=== PATIENT | male | born 1955 | race Caucasian/White ===

== ENCOUNTER → 2016-03-20 | Outpatient (CLI) | payer BC, OTHER ==
--- NOTE | ~2016-03-20 | CNG ---
[facility] [place] [address] CYTO-NONGYN REPORT PROCEDURE Name: GREGORY CRAIG Room #: REG [facility]#: [id number] Admission: 03/20/16 Date of : 57 Discharge: Report #: [id number] Path Case #: [id number] CYTOPATHOLOGY REPORT COLLECTION DATE: 03/20/2016 RECEIVED DATE: 03/20/2016 SUBMITTING PHYS: Dr. Perry Amaya OTHER PHYS: Dr. Perry Amaya CLINICAL HISTORY: Lung mass. SPECIMEN(S) RECEIVED: A.Bronchial brushings, VERENA B.Bronchial brush rinse, VERENA C.Bronchoalveolar lavage, VERENA * * * * * * * * * * * * FINAL DIAGNOSIS: A. Bronchial brushings, VERENA: - No malignant cells identified. - Bronchial epithelial cells, acute and chronic inflammatory cells and red blood cells identified. B. Bronchial brush rinse, VERENA: - No malignant cells identified. - Bronchial epithelial cells and occasional acute and chronic inflammatory cells identified. C. Bronchoalveolar lavage, VERENA: - No malignant cells identified. - Predominantly blood and peripheral blood elements identified. COMMENT: Please see also the bronchial biopsy ([id number]). Clinical, radiographic, and bronchoscopic correlation is recommended. (NEYDA:; d/t: 03/21/16) PATHOLOGIST: Monique Gamino M.D. REPORT ELECTRONICALLY SIGNED BY: Monique Gamino M.D. DATE/TIME: 03/21/2016 21:54 * * * * * * * * * * * * GROSS PATHOLOGY: A. Bronchial brushings, VERENA: The specimen is labeled "Gregory Craig" and consists of five fixed slides. B. Bronchial brush rinse, VERENA: The specimen is labeled "Gregory Craig" and consists of a brush tip in fixative. One ThinPrep slide was prepared. C. Bronchoalveolar lavage, VERENA: The specimen is submitted unfixed, labeled "Gregory Craig". Received by the Cytology Department is 15 mL of red fluid. One ThinPrep slide was prepared. (clt 03.20.2016) [address] [address] CYTO-NONGYN REPORT PROCEDURE Name: GREGORY CRAIG Room #: REG [facility].#: [id number] Admission: 03/20/16 Date of : 57 Discharge: Report #: [id number] Path Case #: [id number] [employer]ER(S): KELBY Arreola(ASCP) INITIAL CPT CODE(S): A; 87068 B; 32644 C; 43712 Professional services performed by [facility] at [address] , [place] [address] [facility] at [address] [place] [address]., [address], [place] [address]. [facility] [address] [place] [address], [address] [place] [address] PHONE: [phone] DIRECTOR: Rgeinaldo Hoffman M.D. * * * END OF REPORT * * *
--- NOTE | ~2016-03-20 | P ---
[facility] [place] [address] PROCEDURE REPORT Name: KANWAL SHEPARD Room #: REG [facility]#: [id number] Admission: 03/20/16 Attend Phys: Perry Amaya MD Discharge: Date of : 57 Report #: [id number] THIS REPORT FOR: //name// CC: Perry Snowden DATE OF SERVICE: 03/20/2016 PROCEDURE: Fiberoptic bronchoscopy with fluoroscopic guidance of transbronchial biopsies and brushings of a left upper lobe cavitary lesion as well as bronchoalveolar lavage in this area. Total fluoroscopy time 2.8 minutes. 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 ASA classification class II. PROCEDURE NOTATION: After discussing risks, benefits of planned procedure with the patient and , he desired to proceed. After obtaining informed consent, he was brought to fluoroscopy and was placed on continuous cardiopulmonary monitoring and supplemental oxygen, then given 4% lidocaine nebulized to anesthetize the upper respiratory tract. Once accomplished, he received conscious sedation, total of 6 mg of Versed and 25 mcg of fentanyl required during the procedure to provide adequate sedation. Once accomplished, bronchoscope was passed through an oral biteblock until the vocal cords visualized. Vocal cords moved appropriately both before and after procedure, 1% lidocaine was instilled in the vocal cords to provide topical anesthesia. Bronchoscope has been then passed in the trachea, which appeared normal. 1% lidocaine was instilled on the tracheobronchial tree bilaterally upon topical anesthesia. Once complete, airways were surveyed. FINDINGS: Mainstem, lobar, segmental and subsegmental bronchi were all explored as best as able. There is hypervascular findings throughout. There is significant cobblestoning to the upper lobes with significant edema and narrowing of the apical segments bilaterally. Because of the abnormal findings on CT, several cytologic brushing and forceps biopsies were obtained in the left apical area. Using fluoroscopic guidance, bronchial lavage was performed in the area at the end of procedure. The patient tolerated well. No noted complications. Chest x-ray is pending at this time. IMPRESSION: Cavitary left upper lobe process, status post bronchoscopy with fluoroscopic-guided transbronchial biopsies and cytologic brushing as well as bronchoalveolar lavage. [address] [address] PROCEDURE REPORT Name: KANWAL SHEPARD Room #: REG [facility]#: [id number] Admission: 03/20/16 Attend Phys: Perry Amaya MD Discharge: Date of : 57 Report #: [id number] PLAN: Await microbiologic, histopathologic and cytologic tests. <ELECTRONICALLY SIGNED> By: Perry Amaya MD 04/02/16 [id number] Perry Amaya MD /nt
--- NOTE | ~2016-03-20 | S ---
[facility] [address] [place] [address] SURGICAL PATH RPT PROCEDURE Name: SHEPARDKANWAL Room #: REG [facility].#: [id number] Admission: 03/20/16 Date of : 57 Discharge: Report #: [id number] Path Case #: [id number] PATHOLOGY REPORT COLLECTION DATE: 03/20/2016 RECEIVED DATE: 03/20/2016 SUBMITTING PHYS: Dr. Perry Amaya OTHER PHYS: ADDENDUM REPORT (Order Date: 03/22/2016 16:39) ADDENDUM COMMENT: Properly controlled special stains are performed. (Block A1) AFB: negative for acid-fast bacilli GMS: negative for fungal organisms The final diagnosis remains unchanged. (CLW:; d/t: 03/22/16) Professional services performed by [facility] at [address], [place] [address] Technical services performed by [facility] at [address] [place] [address], [address] [place] [address]. ELECTRONICALLY SIGNED BY: Monique Gamino M.D. DATE/TIME:03/22/2016 16:43 SPECIMEN(S) RECEIVED: A.Biopsy forceps VERENA * * * * * * * * * * * * FINAL DIAGNOSIS: "Biopsy forceps VERENA", bronchial biopsy: - Benign ciliated respiratory epithelium, submucosa and bronchial cartilage with chronic inflammation, crushed granuloma and reactive changes. (see comment). COMMENT: No malignancy is seen. The patient's history of sarcoid is noted. Properly controlled special stains are performed. Block A1 AFB pending GMS pending Please see also the cytology specimen ([id number]). Clinical, radiographic and bronchoscopic correlation is recommended. (CLW:all; d/t: 03/21/2016) [facility] [place] [address] SURGICAL PATH RPT PROCEDURE Name: KANWAL SHEPARD Room #: REG [facility] Efrain#: [id number] Admission: 03/20/16 Date of : 57 Discharge: Report #: [id number] Path Case #: [id number] PATHOLOGIST: Monique Gamino M.D. REPORT ELECTRONICALLY SIGNED BY: Monique Gamino M.D. DATE/TIME: 03/21/2016 21:59 * * * * * * * * * * * * GROSS PATHOLOGY: Received in formalin labeled "VERENA Rodriguez biopsy forceps," are three segments of collins soft tissue measuring 0.4 x 0.3 x 0.1 cm in aggregate dimensions and ranging from 0.1 to 0.2 cm in maximum dimension. The specimen is submitted entirely in cassette A1. (CAA; 03/20/2016) CLINICAL HISTORY: None provided INITIAL CPT CODE(S): A; 78165, 30225, 50031 Professional services performed by [facility] at [facility] [address], [place] [address] Technical services performed by [facility] at [address] [place] [address], [address], [place] [address]. [facility] [address] [place] [address] PHONE: [phone] DIRECTOR: Reginaldo Hoffman M.D. * * * END OF REPORT * * *
== END ==
LOC: SPEC 03:54
DX: J98.4 Other disorders of lung (principal); D86.0 Sarcoidosis of lung